=== PATIENT | male | born 1960 | race Caucasian/White ===

== ENCOUNTER 2022-11-30 08:05 | Outpatient (CLI) | payer BC, SELFPAY | END 2022-11-30 08:06 | disposition home or self-care (01) | PROVIDERS: PCP Family Medicine; Visit Provider Family Medicine | DX: Z00.00 Encounter for general adult medical examination without abnormal findings (principal); I10 Essential (primary) hypertension; E66.01 Morbid (severe) obesity due to excess calories; R73.9 Hyperglycemia, unspecified; Z12.5 Encounter for screening for malignant neoplasm of prostate | CPT/HCPCS: 82043; 82570; 84153 ==

== ENCOUNTER 2023-02-03 06:54 | Outpatient (CLI) | payer BC, SELFPAY ==
--- NOTE | 2023-02-03 08:15 | W.ANESCHARGE ---
Anesthesia Charges Start Date/Time Anesthesia Start Date: 02/03/23 Anesthesia Start Time: 07:46 Stop Date/Time Anesthesia Stop Date: 02/03/23 Anesthesia Stop Time: 08:10
--- NOTE | 2023-02-03 09:05 | W.ANESCHARGE ---
Anesthesia Charges Start Date/Time Anesthesia Start Date: 02/03/23 Anesthesia Start Time: 07:46 Stop Date/Time Anesthesia Stop Date: 02/03/23 Anesthesia Stop Time: 08:10
== END 2023-02-03 06:55 | disposition home or self-care (01) ==
LOC: OP CLINIC 06:55
PROVIDERS: PCP Family Medicine; Visit Provider Internal Medicine
DX: Z12.11 Encounter for screening for malignant neoplasm of colon (principal); K64.8 Other hemorrhoids
CPT/HCPCS: 00811; 00812; 45378

== ENCOUNTER 2024-04-30 09:00 | Outpatient (RCR) | payer BC, SELFPAY | END 2024-08-21 07:32 | disposition home or self-care (01) | PROVIDERS: PCP Physician Assistant Medical; Visit Provider Physician Assistant Medical | DX: M25.511 Pain in right shoulder (principal); G89.29 Other chronic pain; Z51.89 Encounter for other specified aftercare | CPT/HCPCS: 97035; 97110; 97140; 97161 ==

== ENCOUNTER 2025-02-03 08:04 | Outpatient (CLI) | payer BC, SELFPAY | END 2025-02-03 08:05 | disposition home or self-care (01) | LOC: NFLDREF 18:51 | PROVIDERS: PCP Physician Assistant Medical; Referring Provider Physician Assistant Medical; Visit Provider Physician Assistant Medical | DX: R73.03 Prediabetes (principal); I10 Essential (primary) hypertension; Z12.5 Encounter for screening for malignant neoplasm of prostate | CPT/HCPCS: 80053; 80061; 84443; G0103 ==